=== PATIENT | male | born 1950 | race Caucasian/White ===

== ENCOUNTER 2022-08-25 11:15 | Outpatient (RCR) | payer MEDICARE, OTHER ==
[~2022-08-25 11:15] MED LIST: NO HOME MEDICATIONS
== END 2022-09-01 | disposition home or self-care (01) ==
LOC: WSST
DX: G31.83 Neurocognitive disorder with Lewy bodies (principal); F02.80 Dementia in other diseases classified elsewhere, unspecified severity, without behavioral disturbance, psychotic disturbance, mood disturbance, and anxiety

== ENCOUNTER → 2022-09-29 | Outpatient (RCR) | payer MEDICARE, OTHER | END | disposition home or self-care (01) | LOC: WSST | DX: G31.83 Neurocognitive disorder with Lewy bodies (principal); F02.80 Dementia in other diseases classified elsewhere, unspecified severity, without behavioral disturbance, psychotic disturbance, mood disturbance, and anxiety ==

== ENCOUNTER 2022-10-27 11:15 | Outpatient (RCR) | payer MEDICARE, OTHER | END 2022-10-30 | disposition home or self-care (01) | LOC: WSST | DX: G31.83 Neurocognitive disorder with Lewy bodies (principal); F02.80 Dementia in other diseases classified elsewhere, unspecified severity, without behavioral disturbance, psychotic disturbance, mood disturbance, and anxiety ==

== ENCOUNTER 2022-11-24 11:15 | Outpatient (RCR) | payer MEDICARE, OTHER | END 2022-11-29 | disposition home or self-care (01) | LOC: WSST | DX: G31.83 Neurocognitive disorder with Lewy bodies (principal); F02.80 Dementia in other diseases classified elsewhere, unspecified severity, without behavioral disturbance, psychotic disturbance, mood disturbance, and anxiety ==

== ENCOUNTER 2022-12-29 11:15 | Outpatient (RCR) | payer MEDICARE, OTHER | END 2022-12-30 | disposition home or self-care (01) | LOC: WSST | DX: R41.841 Cognitive communication deficit (principal); G31.83 Neurocognitive disorder with Lewy bodies; F02.80 Dementia in other diseases classified elsewhere, unspecified severity, without behavioral disturbance, psychotic disturbance, mood disturbance, and anxiety ==

== ENCOUNTER → 2023-06-01 | Outpatient (RCR) | payer MEDICARE, OTHER | END | disposition home or self-care (01) | LOC: WSST | DX: R41.841 Cognitive communication deficit (principal); G31.83 Neurocognitive disorder with Lewy bodies; F02.80 Dementia in other diseases classified elsewhere, unspecified severity, without behavioral disturbance, psychotic disturbance, mood disturbance, and anxiety ==

== ENCOUNTER 2023-07-22 09:18 | Outpatient (RCR) | payer MEDICARE, OTHER | END 2023-08-01 | disposition home or self-care (01) | LOC: MKS.ESL.OT | DX: F01.50 Vascular dementia, unspecified severity, without behavioral disturbance, psychotic disturbance, mood disturbance, and anxiety (principal); G31.83 Neurocognitive disorder with Lewy bodies ==

== ENCOUNTER 2023-07-22 10:30 | Outpatient (RCR) | payer MEDICARE, OTHER | END 2023-08-01 | disposition home or self-care (01) | LOC: WSST | DX: R41.841 Cognitive communication deficit (principal); G31.83 Neurocognitive disorder with Lewy bodies; F02.80 Dementia in other diseases classified elsewhere, unspecified severity, without behavioral disturbance, psychotic disturbance, mood disturbance, and anxiety ==

== ENCOUNTER 2023-08-30 10:30 | Outpatient (RCR) | payer MEDICARE, OTHER | END 2023-09-01 | disposition home or self-care (01) | LOC: MKS.ESL.OT | DX: G31.83 Neurocognitive disorder with Lewy bodies (principal) ==

== ENCOUNTER 2023-08-30 11:15 | Outpatient (RCR) | payer MEDICARE, OTHER | END 2023-09-01 | disposition home or self-care (01) | LOC: WSST | DX: G31.83 Neurocognitive disorder with Lewy bodies (principal); F02.80 Dementia in other diseases classified elsewhere, unspecified severity, without behavioral disturbance, psychotic disturbance, mood disturbance, and anxiety ==

== ENCOUNTER 2023-09-29 10:30 | Outpatient (RCR) | payer MEDICARE, OTHER | END 2023-09-30 | disposition home or self-care (01) | LOC: WSST | DX: R41.841 Cognitive communication deficit (principal); G31.83 Neurocognitive disorder with Lewy bodies; F02.818 Dementia in other diseases classified elsewhere, unspecified severity, with other behavioral disturbance ==

== ENCOUNTER 2023-09-29 11:15 | Outpatient (RCR) | payer MEDICARE, OTHER | END 2023-09-30 | disposition home or self-care (01) | LOC: MKS.ESL.OT | DX: F01.50 Vascular dementia, unspecified severity, without behavioral disturbance, psychotic disturbance, mood disturbance, and anxiety (principal); G31.83 Neurocognitive disorder with Lewy bodies ==

== ENCOUNTER 2023-11-25 10:15 | Outpatient (RCR) | payer MEDICARE, OTHER | END 2023-11-30 | disposition home or self-care (01) | LOC: WSST | DX: R41.841 Cognitive communication deficit (principal); G31.83 Neurocognitive disorder with Lewy bodies; F02.818 Dementia in other diseases classified elsewhere, unspecified severity, with other behavioral disturbance ==

== ENCOUNTER 2023-12-23 10:15 | Outpatient (RCR) | payer MEDICARE, OTHER | END 2023-12-31 | disposition home or self-care (01) | LOC: WSST | DX: R41.841 Cognitive communication deficit (principal); G31.83 Neurocognitive disorder with Lewy bodies; F02.80 Dementia in other diseases classified elsewhere, unspecified severity, without behavioral disturbance, psychotic disturbance, mood disturbance, and anxiety ==

== ENCOUNTER 2024-04-27 10:30 | Outpatient (RCR) | payer MEDICARE, OTHER | END 2024-05-01 | disposition home or self-care (01) | LOC: WSST | DX: F03.90 Unspecified dementia, unspecified severity, without behavioral disturbance, psychotic disturbance, mood disturbance, and anxiety (principal) ==

== ENCOUNTER → 2024-06-01 | Outpatient (RCR) | payer MEDICARE, OTHER | END | disposition still patient (30) | LOC: MKS.ESL.OT → WSST 05-04 09:30 → MKS.ESL.OT 09:30 | DX: R41.841 Cognitive communication deficit (principal); G31.83 Neurocognitive disorder with Lewy bodies; F02.80 Dementia in other diseases classified elsewhere, unspecified severity, without behavioral disturbance, psychotic disturbance, mood disturbance, and anxiety ==